=== PATIENT | male | born 1965 | race Caucasian/White ===

== ENCOUNTER 2018-11-10 16:46 | Emergency (ER) | payer MEDICAID ==
[2018-11-10] MEDS ORDERED: SODIUM CHLORIDE 0.9% 1L IRRIG IRR (17:42)
[2018-11-10] MEDS: DIPHTH/TET/ACEL PERTUSS (ADULT) 0.5 ML VIAL IM* (17:58)
[2018-11-10] MEDS: LIDOCAINE 2%/EPI (MDV) 20ML INJ INJ (18:03)
[2018-11-10] MEDS: TETANUS IMMUNE GLOB 250 UNIT SYG IM (19:06)
[2018-11-10] MEDS: NEOMYC/POLYMYX/BACIT 30 GM OINT TOP (19:36)
== END 2018-11-10 19:38 | disposition home or self-care (01) ==
LOC: FTE 16:46
DX: S61.412A Laceration without foreign body of left hand, initial encounter (principal); W26.0XXA Contact with knife, initial encounter; Y92.9 Unspecified place or not applicable; Z23 Encounter for immunization
CPT/HCPCS: 12002; 73130-LT; 90389; 90471; 90715; 96372; 99284-25

== ENCOUNTER 2018-11-13 03:48 | Emergency (ER) | payer MEDICAID | END 2018-11-13 05:52 | disposition home or self-care (01) | LOC: FTE 03:48 | DX: Z48.02 Encounter for removal of sutures (principal) | CPT/HCPCS: 99281; Z7502 ==

== ENCOUNTER 2018-11-18 03:08 | Emergency (ER) | payer MEDICAID ==
[2018-11-18] MEDS ORDERED: BACITRACIN/POLYMYXIN 28.35 GM OINT TOP (06:30)
== END 2018-11-18 06:45 | disposition home or self-care (01) ==
LOC: FTE 03:08
DX: Z48.02 Encounter for removal of sutures (principal)
CPT/HCPCS: 99281; Z7610